=== PATIENT | male | born 1980 | race Caucasian/White ===

== ENCOUNTER 2023-04-29 07:11 | Day surgery (SDC) | payer OTHER ==
[2023-04-29] VITALS (218 sets, daily range): BP systolic 62–132; BP diastolic 38–95
[~2023-04-29] VITALS: Ht 180.3 cm; Wt 93.0 kg
[2023-04-29] MEDS ORDERED: NALTREXONE50 MG PO (07:35)
[2023-04-29] MEDS ORDERED: CLONIDINE0.1 MG PO ×2 (07:36→18:07)
[2023-04-29] MEDS ORDERED: KLONOPIN2 MG PO ×2 (07:37→18:09)
[2023-04-29 08:09] LABS: BASO% 0.7 % (0-3); EOS% 7.1 % (0-8); HEMATOCRIT 42.7 % (39.0-50.0); HEMOGLOBIN 14.1 g/dl (14.0-18.0); IMMATURE GRANULOCYTES 0.2 % (0.0-5.0); LYMPH% 44.2 % (15-41); MEAN CELL VOLUME 86.6 fL CALC (80.0-100.0); MEAN CORPUSCULAR HGB 28.6 pG CALC (26.0-32.0); MONO% 8.1 % (2-13); NEUT# 1.67 thou/uL (1.82-7.42); NEUT% 39.7 % (42-76); RED BLOOD COUNT 4.93 mill/uL (4.70-6.10); RED CELL DISTRI WIDTH 11.8 % (11.5-15.5)
[2023-04-29] MEDS ORDERED: ZOLOFT25 MG PO (08:21)
[2023-04-29 08:32] LABS: ALBUMIN 4.2 g/dL (3.2-5.0); ALKALINE PHOSPHATASE 67 u/l (38-126); ANION GAP 10 (6-22 (CALC)); BILIRUBIN, TOTAL 0.5 mg/dL (0.2-1.3); BUN 16 mg/dL (9-20); BUN/CREATININE RATIO 20 (12-20 (CALC)); CARBON DIOXIDE 31 mmol/l (22-30); CHLORIDE 102 mmol/l (95-108); CREATININE 0.8 mg/dL (0.7-1.3); GFR FOR AFR.AMER. > 60 ML/MIN (>=60 (CALC)); GFR OTHER RACES > 60 ML/MIN (>=60 (CALC)); SGOT/AST 33 u/l (17-59); SODIUM 139 mmol/l (137-146); TOTAL PROTEIN 6.8 g/dL (6.3-8.2)
[2023-04-30 03:39] VITALS: BP 114/49
[2023-04-30 03:55] VITALS: BP 114/49
[2023-04-30 05:21] LABS: BASO% 0.1 % (0-3); HEMATOCRIT 39.6 % (39.0-50.0); HEMOGLOBIN 13.2 g/dl (14.0-18.0); IMMATURE GRANULOCYTES 0.1 % (0.0-5.0); MEAN CELL VOLUME 86.8 fL CALC (80.0-100.0); MEAN CORPUSCULAR HGB 28.9 pG CALC (26.0-32.0); MEAN CORPUSCULAR HGB CONC 33.3 g/dL CAL (32.0-36.0); MONO% 1.7 % (2-13); NEUT# 7.17 thou/uL (1.82-7.42); NEUT% 88.1 % (42-76); RED BLOOD COUNT 4.56 mill/uL (4.70-6.10)
[2023-04-30 05:48] LABS: ALBUMIN 4.2 g/dL (3.2-5.0); ALKALINE PHOSPHATASE 55 u/l (38-126); BUN 16 mg/dL (9-20); BUN/CREATININE RATIO 20 (12-20 (CALC)); CHLORIDE 106 mmol/l (95-108); CREATININE 0.8 mg/dL (0.7-1.3); GFR FOR AFR.AMER. > 60 ML/MIN (>=60 (CALC)); GFR OTHER RACES > 60 ML/MIN (>=60 (CALC)); MAGNESIUM 2.2 mg/dL (1.6-2.3); POTASSIUM 4.2 mmol/l (3.5-5.1); SGOT/AST 45 u/l (17-59); SODIUM 141 mmol/l (137-146); TOTAL PROTEIN 6.5 g/dL (6.3-8.2)
[2023-04-30 05:49] LABS: ANION GAP 17 (6-22 (CALC)); BILIRUBIN, TOTAL 0.9 mg/dL (0.2-1.3); CARBON DIOXIDE 22 mmol/l (22-30)
[2023-04-30 07:11] VITALS: BP 118/62
[2023-04-30 11:04] VITALS: BP 118/62
== END 2023-04-30 16:30 | disposition home or self-care (01) | DRG 897 ==
LOC: ANR 07:11 → MS2 07:11 → ANR 04-30 16:30
PROVIDERS: ATTEND Anesthesiology
DX: F11.20 Opioid dependence, uncomplicated (principal)
CPT/HCPCS: J0131; J2060; J2354; J3475